=== PATIENT | male | born 1975 | race African-American/Black ===

== ENCOUNTER 2016-10-09 11:16 | Emergency (ER) | payer OTHER ==
[~2016-10-09] VITALS: Ht 177.8 cm; Wt 72.6 kg
[2016-10-09 12:37] LABS: BASOPHILS 0.9 % (0.0-2.0); EOSINOPHILS 4.5 % (0.0-3.0); HEMATOCRIT 39.7 % (42.0-52.0); HEMOGLOBIN 13.4 gm/dL (14.0-18.0); LYMPHOCYTES 25.9 % (24.0-44.0); MCH 26.1 pg (26.0-34.0); MCHC 33.9 g/dL (28.0-37.0); MCV 77.2 fL (80.0-100.0); MONOCYTES 5.4 % (1.0-8.0); PLATELET COUNT 211 thou/uL (150-400); POLYS 63.3 % (36.0-66.0); RBC 5.15 mil/uL (4.50-6.00); RDW 16.4 % (10.5-14.5); WBC 6.3 thou/uL (4.0-11.0)
[2016-10-09 12:39] LABS: MANUAL DIFF NO
[2016-10-09 12:45] LABS: CALCIUM 9.1 mg/dL (8.5-10.1); CREATININE 0.9 mg/dL (0.7-1.3); POTASSIUM 3.5 mmol/L (3.5-5.1)
[2016-10-09 12:50] LABS: ALBUMIN 3.9 g/dL (3.4-5.0); TOTAL BILIRUBIN 0.5 mg/dL (<0.1-1.0); TOTAL PROTEIN 7.4 g/dL (6.4-8.2)
[2016-10-09 13:15] LABS: URINE BILIRUBIN NEGATIVE (Negative); URINE BLOOD NEGATIVE (Negative); URINE COLOR YELLOW; URINE GLUCOSE-RANDOM* NEGATIVE (Negative); URINE KETONES NEGATIVE (Negative); URINE LEUKOCYTES-REFLEX NEGATIVE (Negative); URINE PROTEIN (DIPSTICK) NEGATIVE (Negative); URINE SPECIFIC GRAVITY <= 1.005 (1.003-1.035); URINE UROBILINOGEN 0.2 E.U./dl (0.2-1.0)
[2016-10-09] MEDS ORDERED: ZITHROMAX1 GM PO (14:04)
[2016-10-09] MEDS ORDERED: FLAGYL500 MG PO ×2 (14:04→14:13)
[2016-10-09] MEDS ORDERED: PHENERGAN 25 MG25 M1 PO ×2 (14:04→14:13)
[2016-10-09] MEDS ORDERED: SUPRAX400 M1 PO (14:04)
[2016-10-09] MEDS ORDERED: DOXYCYCLINE 10100 MG PO (14:11)
[2016-10-09 14:37] VITALS: BP 119/77
[2016-10-12 20:07] LABS: CHLAMYDIA TRACHOMATIS-PCR Negative (Negative); NEISSERIA GONORRHEA-PCR Negative (Negative)
== END 2016-10-09 14:42 | disposition home or self-care (01) ==
LOC: ER 11:16
PROVIDERS: Physician Assistant
DX: L02.412 Cutaneous abscess of left axilla (principal); R11.2 Nausea with vomiting, unspecified; N41.9 Inflammatory disease of prostate, unspecified; F10.99 Alcohol use, unspecified with unspecified alcohol-induced disorder; Z77.22 Contact with and (suspected) exposure to environmental tobacco smoke (acute) (chronic); Z88.0 Allergy status to penicillin

== ENCOUNTER 2016-10-22 09:45 | Emergency (ER) | payer OTHER ==
[~2016-10-22] VITALS: Ht 175.3 cm; Wt 76.2 kg
[~2016-10-22 09:45] MED LIST: DOXYCYCLINE 10100 MG PO; FLAGYL500 MG PO; PHENERGAN 25 MG25 M1 PO; SUPRAX400 M1 PO; ZITHROMAX1 GM PO
[2016-10-22 09:52] VITALS: BP 117/45
[2016-10-22] MEDS ORDERED: NOHOMEMEDICATIONS (09:55)
== END 2016-10-22 15:15 | disposition home or self-care (01) ==
LOC: ER 09:45
DX: S63.125A Dislocation of interphalangeal joint of left thumb, initial encounter (principal); N40.0 Benign prostatic hyperplasia without lower urinary tract symptoms; F10.99 Alcohol use, unspecified with unspecified alcohol-induced disorder; Z88.0 Allergy status to penicillin; Z77.22 Contact with and (suspected) exposure to environmental tobacco smoke (acute) (chronic); W20.8XXA Other cause of strike by thrown, projected or falling object, initial encounter; Y93.89 Activity, other specified; Y92.89 Other specified places as the place of occurrence of the external cause; Y99.8 Other external cause status

== ENCOUNTER 2016-10-24 00:29 | Emergency (ER) | payer OTHER ==
[~2016-10-24] VITALS: Ht 182.9 cm; Wt 81.7 kg
--- NOTE | ~2016-10-24 | EKG ---
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: TRISHA : 1975 Requested By: Nini Ken Order Number: [id number] MD: Aniket Harris Measurements Intervals [place] Rate: 83 P: 76 MI: 109 QRS: 42 QRSD: 80 T: 55 QT: 375 QTc: 441 Interpretive Statements Sinus rhythm Short MI interval Probable left atrial enlargement ST elev, probable normal early repol pattern No previous ECG available for comparison Electronically Signed On 10-24-2016 12:44:33 CDT by Aniket Harris [email or web address] <ELECTRONICALLY SIGNED> By: Aniket Harris MD 10/24/16 1244 0031 0031 Aniket Harris MD /MARK
[~2016-10-24 00:29] MED LIST changes: +NOHOMEMEDICATIONS
[2016-10-24 01:41] LABS: ABSOLUTE NEUTROPHILS 6.9 thou/uL (1.4-8.2); BASOPHILS 0.5 % (0.0-2.0); EOSINOPHILS 2.3 % (0.0-3.0); HEMATOCRIT 40.6 % (42.0-52.0); HEMOGLOBIN 13.4 gm/dL (14.0-18.0); LYMPHOCYTES 18.2 % (24.0-44.0); MCH 25.6 pg (26.0-34.0); MCV 77.4 fL (80.0-100.0); MONOCYTES 6.4 % (1.0-8.0); POLYS 72.6 % (36.0-66.0); RBC 5.24 mil/uL (4.50-6.00); RDW 15.5 % (10.5-14.5); WBC 9.5 thou/uL (4.0-11.0)
[2016-10-24 01:44] LABS: MANUAL DIFF NO
[2016-10-24] MEDS ORDERED: NORCO 5-325 TA1 EACH PO (01:44)
[2016-10-24 01:49] LABS: CALCIUM 9.2 mg/dL (8.5-10.1); CREATININE 0.9 mg/dL (0.7-1.3); POTASSIUM 3.5 mmol/L (3.5-5.1)
[2016-10-24 02:27] LABS: LARGE PLATELETS SEVERAL; PLATELET COUNT 220 thou/uL (150-400)
[2016-10-24 02:53] VITALS: BP 105/56
== END 2016-10-24 03:10 | disposition home or self-care (01) ==
LOC: ER 00:29
PROVIDERS: Emergency Medicine
DX: R07.89 Other chest pain (principal); S30.810A Abrasion of lower back and pelvis, initial encounter; N40.0 Benign prostatic hyperplasia without lower urinary tract symptoms; F10.99 Alcohol use, unspecified with unspecified alcohol-induced disorder; Z88.0 Allergy status to penicillin; Z77.22 Contact with and (suspected) exposure to environmental tobacco smoke (acute) (chronic); Y04.8XXA Assault by other bodily force, initial encounter; Y93.89 Activity, other specified; Y92.89 Other specified places as the place of occurrence of the external cause; Y99.8 Other external cause status

== ENCOUNTER 2017-07-11 23:32 | Emergency (ER) | payer OTHER ==
[~2017-07-11] VITALS: Ht 175.3 cm; Wt 71.7 kg
[~2017-07-11 23:32] MED LIST changes: +NORCO 5-325 TA1 EACH PO
[2017-07-12 00:07] LABS: URINE BILIRUBIN NEGATIVE (Negative); URINE BLOOD 1+ (Negative); URINE CLARITY CLEAR; URINE COLOR YELLOW; URINE GLUCOSE-RANDOM* NEGATIVE (Negative); URINE KETONES 1+ (Negative); URINE LEUKOCYTES-REFLEX NEGATIVE (Negative); URINE NITRITE-REFLEX NEGATIVE (Negative); URINE PROTEIN (DIPSTICK) NEGATIVE (Negative); URINE SPECIFIC GRAVITY 1.025 (1.005-1.035); URINE UROBILINOGEN 0.2 E.U./dl (0.2-1.0)
[2017-07-12 00:26] LABS: BACTERIA-REFLEX None Seen /HPF (None Seen); CASTS None Seen /LPF (None Seen); CRYSTALS None Seen /LPF (None Seen); MUCUS 0-3 Light strn/LPF (None Seen); SQUAMOUS None Seen /LPF (0-3); URINE RBC 0-2 Rare /HPF (0-2); URINE WBC-REFLEX None Seen /HPF (0-5)
[2017-07-12 00:36] LABS: ABSOLUTE NEUTROPHILS 6.8 thou/uL (1.4-8.2); BASOPHILS 0.4 % (0.0-2.0); EOSINOPHILS 1.7 % (0.0-3.0); HEMATOCRIT 44.1 % (42.0-52.0); HEMOGLOBIN 14.6 gm/dL (14.0-18.0); LYMPHOCYTES 8.5 % (24.0-44.0); MCH 25.3 pg (26.0-34.0); MCHC 33.1 g/dL (28.0-37.0); MCV 76.5 fL (80.0-100.0); MONOCYTES 3.1 % (1.0-8.0); PLATELET COUNT 271 thou/uL (150-400); POLYS 86.3 % (36.0-66.0); RBC 5.76 mil/uL (4.50-6.00); RDW 16.2 % (10.5-14.5); WBC 7.8 thou/uL (4.0-11.0)
[2017-07-12 00:48] LABS: CALCIUM 9.1 mg/dL (8.5-10.1); POTASSIUM 3.8 mmol/L (3.5-5.1)
[2017-07-12 00:55] LABS: ALBUMIN 3.9 g/dL (3.4-5.0); TOTAL BILIRUBIN 0.5 mg/dL (<0.1-1.0); TOTAL PROTEIN 7.3 g/dL (6.4-8.2)
[2017-07-12] MEDS ORDERED: CIPROFLOXACIN500 M1 PO (01:33)
[2017-07-12] MEDS ORDERED: NORCO 5-325 TA1 EACH PO (01:33)
[2017-07-12] MEDS ORDERED: ONDANSETRON HCL4 M2 PO (01:33)
[2017-07-12 02:49] VITALS: BP 114/63
== END 2017-07-12 02:49 | disposition home or self-care (01) ==
LOC: ER 23:32
PROVIDERS: Emergency Medicine
DX: K52.9 Noninfective gastroenteritis and colitis, unspecified (principal); N41.9 Inflammatory disease of prostate, unspecified; N40.0 Benign prostatic hyperplasia without lower urinary tract symptoms; Z88.0 Allergy status to penicillin